=== PATIENT | female | born 1925 | race Caucasian/White ===

== ENCOUNTER 2016-07-20 11:36 | Inpatient (IN) | payer MEDICARE ==
[~2016-07-20] VITALS: Ht 152.4 cm; Wt 53.5 kg
[2016-07-20] MEDS ORDERED: ISOS40TA11 PO (12:11)
[2016-07-20] MEDS ORDERED: INDO50CA PO (12:11)
[2016-07-20] MEDS ORDERED: FURO20TA3 PO (12:11)
[2016-07-20] MEDS ORDERED: ASPI-515 PO (12:11)
[2016-07-20] MEDS ORDERED: DILT240C77 PO (12:11)
[2016-07-20] MEDS ORDERED: DIGO125T PO (12:11)
[2016-07-20] MEDS ORDERED: NITR0.4T SL (12:11)
[2016-07-20 12:56] LABS: HEMOGLOBIN 14.4 g/dL (11.7-16.4)
[2016-07-20 13:05] LABS: ASPARTATE AMINO TRANSFERASE 13 U/L (15-37); BLOOD UREA NITROGEN 12 mg/dL (7-18)
[2016-07-20 13:14] LABS: IS PT STATUS REG ER OR PRE ER? YES
[2016-07-20] MEDS ORDERED: SODIUM CHLORIDE FLUSH 10ML SYR IVF ONE (13:30)
[2016-07-20 14:34] LABS: PATH.CAST-FLAG NOT PRESENT; SPERM-FLAG NOT PRESENT; SRC-FLAG NOT PRESENT; XTAL-FLAG NOT PRESENT; YLC-FLAG NOT PRESENT
[2016-07-20] MEDS ORDERED: ENOXAPARIN 40 MG/0.4 ML SQ SCH (17:00)
[2016-07-20] MEDS ORDERED: ONDANSETRON 2MG/ML, 2ML IVP PRN (17:00)
[2016-07-20] MEDS ORDERED: HYDROcodone/APAP 5/325 TABLET PO PRN (17:00)
[2016-07-20] MEDS ORDERED: LABETALOL 5MG/ML, 20ML IV PRN (17:00)
[2016-07-20] MEDS ORDERED: ACETAMINOPHEN 325 MG TABLET PO PRN (17:00)
[2016-07-20] MEDS ORDERED: CEFTRIAXONE PMX 1GM/50ML 50 ML IV SCH (17:00)
[2016-07-20 17:15] VITALS: BP 120/68
[2016-07-20] MEDS ORDERED: NITROGLYCERIN 0.4 MG BOTTLE (25 TABS) SL PRN (17:30)
[2016-07-20] MEDS ORDERED: FUROSEMIDE 40 MG/4 ML IV ONE (17:30)
[2016-07-20 19:05] VITALS: BP 111/69
[2016-07-20 19:36] LABS: IS PT STATUS REG ER OR PRE ER? NO
[2016-07-20] MEDS ORDERED: NITROFURANTOIN (MACROBID) 100 MG CAPSULE PO SCH (21:00)
[2016-07-20] MEDS ORDERED: SULFAMETH./TRIMETHOPRIM SS 400MG/80MG TABLET PO SCH (21:00)
[2016-07-20] MEDS ORDERED: DIPHENHYDRAMINE 25 MG CAPSULE PO ONE (21:30)
[2016-07-20] MEDS ORDERED: DIPHENHYDRAMINE 25 MG CAPSULE ONE (21:31)
[2016-07-20 22:28] VITALS: BP 132/77
[2016-07-21 02:12] VITALS: BP 126/70
[2016-07-21 05:38] LABS: HEMOGLOBIN 14.4 g/dL (11.7-16.4)
[2016-07-21 05:51] LABS: BLOOD UREA NITROGEN 15 mg/dL (7-18)
[2016-07-21 06:09] LABS: ASPARTATE AMINO TRANSFERASE 15 U/L (15-37)
[2016-07-21 07:02] VITALS: BP 106/60
[2016-07-21] MEDS ORDERED: AZITHROMYCIN 500 MG in SODIUM CHLORIDE 0.9% 250 ML IV SCH (08:30)
[2016-07-21] MEDS ORDERED: CEFTRIAXONE PMX 1GM/50ML 50 ML IV SCH (08:30)
[2016-07-21] MEDS ORDERED: DILTIAZEM 240 MG CAP.ER.24H PO SCH ×2 (09:00)
[2016-07-21 09:45] VITALS: BP 124/66
[2016-07-21] MEDS: ASPIRIN 81 MG TABLET EC PO SCH (09:50)
[2016-07-21] MEDS: DIGOXIN 0.125 MG TABLET PO SCH (09:50)
[2016-07-21] MEDS: ISOSORBIDE DINITRATE 20 MG TABLET PO SCH (09:50)
[2016-07-21 11:10] VITALS: BP 110/68
[2016-07-21] MEDS: DILTIAZEM 120 MG CAP.ER.24H PO SCH (11:10)
[2016-07-21 13:17] VITALS: BP 102/61
[2016-07-21] MEDS ORDERED: FUROSEMIDE 20 MG/2 ML IV ONE (15:00)
[2016-07-21] MEDS: ENOXAPARIN 30 MG/0.3 ML SQ SCH (18:22)
[2016-07-21 20:11] VITALS: BP 126/52
[2016-07-22 02:05] VITALS: BP 146/92
[2016-07-22 05:26] LABS: HEMOGLOBIN 13.8 g/dL (11.7-16.4)
[2016-07-22 05:34] LABS: BLOOD UREA NITROGEN 15 mg/dL (7-18)
[2016-07-22 07:17] VITALS: BP 146/75
[2016-07-22] MEDS: FUROSEMIDE 40 MG TABLET PO SCH (08:19)
[2016-07-22] MEDS: ASPIRIN 81 MG TABLET EC PO SCH (08:19)
[2016-07-22] MEDS: DIGOXIN 0.125 MG TABLET PO SCH (08:19)
[2016-07-22] MEDS: DILTIAZEM 120 MG CAP.ER.24H PO SCH (08:20)
[2016-07-22] MEDS: ISOSORBIDE DINITRATE 20 MG TABLET PO SCH (08:21)
[2016-07-22 12:57] VITALS: BP 124/70
[2016-07-22] MEDS ORDERED: ENOX30SY4 SQ (13:02)
[2016-07-22] MEDS: ENOXAPARIN 30 MG/0.3 ML SQ SCH (18:19)
[2016-07-22 19:02] VITALS: BP 105/68
[2016-07-23 00:40] VITALS: BP 119/74
[2016-07-23 07:45] VITALS: BP 118/75
[2016-07-23] MEDS ORDERED: DILTIAZEM 120 MG CAP.ER.24H PO SCH (09:00)
[2016-07-23] MEDS: ISOSORBIDE DINITRATE 20 MG TABLET PO SCH (10:17)
[2016-07-23] MEDS: ASPIRIN 81 MG TABLET EC PO SCH (10:17)
[2016-07-23] MEDS: DIGOXIN 0.125 MG TABLET PO SCH (10:18)
[2016-07-23] MEDS: FUROSEMIDE 40 MG TABLET PO SCH (10:18)
[2016-07-23 13:56] VITALS: BP 94/57
[2016-07-23] MEDS ORDERED: LISI2.5T PO (16:11)
[2016-07-24] MEDS ORDERED: LISINOPRIL 5 MG TABLET PO SCH (09:00)
== END 2016-07-23 17:12 | DRG 291 ==
LOC: ED 14:47 → EDIP 15:31 → 5SO 17:19 → 3NE 07-22 18:45
PROVIDERS: ADMIT Hospitalist; ATTEND Hospitalist
PROC: 0T9B70Z Drainage of Bladder with Drainage Device, Via Natural or Artificial Opening (ICD-10-PCS; principal; 2016-07-20)
DX: I11.0 Hypertensive heart disease with heart failure (principal); J96.01 Acute respiratory failure with hypoxia; J18.9 Pneumonia, unspecified organism; E44.1 Mild protein-calorie malnutrition; N17.9 Acute kidney failure, unspecified; I82.812 Embolism and thrombosis of superficial veins of left lower extremity; S22.41XA Multiple fractures of ribs, right side, initial encounter for closed fracture; I50.9 Heart failure, unspecified; Z66 Do not resuscitate; M10.9 Gout, unspecified; H91.90 Unspecified hearing loss, unspecified ear; T50.2X5A Adverse effect of carbonic-anhydrase inhibitors, benzothiadiazides and other diuretics, initial encounter; I48.91 Unspecified atrial fibrillation; Z79.01 Long term (current) use of anticoagulants; I25.2 Old myocardial infarction; Z87.891 Personal history of nicotine dependence; Z79.82 Long term (current) use of aspirin; Z68.23 Body mass index [BMI] 23.0-23.9, adult; Z88.0 Allergy status to penicillin
CPT/HCPCS: 36415; 71010; 80048; 80053; 80061; 80162; 81001; 83880; 84145; 84484; 85025; 85610; 85730; 87086; 93005; 93306; 93970; J0456; J0696; J1650; J1940; J7050; Q0163